=== PATIENT | female | born 1990 ===

== ENCOUNTER 2020-08-07 12:16 | Inpatient (IN) | payer OTHER ==
[~2020-08-07] VITALS: Ht 162.6 cm; Wt 2.7 kg
[2020-08-15] MEDS ORDERED: ZOLOFT50 MG PO (11:19)
[2020-08-15] MEDS ORDERED: PRENATAL TABLE1 EAC1 PO (11:20)
[2020-08-15] MEDS ORDERED: VISTARIL50 MG PO (11:20)
== END 2020-08-18 10:43 | disposition home or self-care (01) | DRG 788 ==
LOC: OB/GYN 08-15 11:14 → O/R 08-15 11:14 → LDR 08-15 11:14 → O/R 08-15 13:28 → OB/GYN 08-15 14:46
PROVIDERS: ADMIT Obstetrics & Gynecology Maternal & Fetal Medicine; ATTEND Obstetrics & Gynecology Maternal & Fetal Medicine
PROC: 4A1HXFZ Monitoring of Products of Conception, Cardiac Rhythm, External Approach (ICD-10-PCS; 2020-08-15)
PROC: 10D00Z1 Extraction of Products of Conception, Low, Open Approach (ICD-10-PCS; principal; 2020-08-15 12:00)
DX: O76 Abnormality in fetal heart rate and rhythm complicating labor and delivery (principal); Z3A.39 39 weeks gestation of pregnancy; Z37.0 Single live birth; Z20.822 Contact with and (suspected) exposure to COVID-19

== ENCOUNTER 2020-08-15 10:04 | Outpatient (CLI) | payer OTHER ==
[2020-08-15] MEDS ORDERED: ZOLOFT50 MG PO (11:19)
[2020-08-15] MEDS ORDERED: PRENATAL TABLE1 EAC1 PO (11:20)
[2020-08-15] MEDS ORDERED: VISTARIL50 MG PO (11:20)
== END 2020-08-15 11:57 | disposition still patient (30) ==
LOC: NST 10:04
PROVIDERS: ATTEND Obstetrics & Gynecology Maternal & Fetal Medicine
DX: O47.1 False labor at or after 37 completed weeks of gestation (principal)

== ENCOUNTER 2023-09-01 18:35 | Emergency (ER) | payer OTHER ==
[~2023-09-01] VITALS: Ht 172.7 cm; Wt 59.0 kg
[~2023-09-01 18:35] MED LIST: PRENATAL TABLE1 EAC1 PO; VISTARIL50 MG PO; ZOLOFT50 MG PO
[2023-09-01] MEDS ORDERED: ATIVAN0.5 M1 (19:16)
[2023-09-01] MEDS ORDERED: SERTRALINE HCL50 MG (19:17)
[2023-09-01] MEDS ORDERED: RISPERIDONE0.25 MG (19:17)
[2023-09-01] MEDS ORDERED: LAMICTAL25 M1 (19:17)
[2023-09-01] MEDS ORDERED: FAMOtidine 10 MG/ML (4ML VIAL) IV ONE (19:45)
[2023-09-01] MEDS ORDERED: 0.9 % SODIUM CHLORIDE 1,000 ML IV ONE (19:45)
[2023-09-01] MEDS ORDERED: ONDANSETRON HCL 2 MG/ML VIAL IV ONE (19:45)
[2023-09-01 21:03] LABS: HEMATOCRIT 36.4 % (36.0-45.00); HEMOGLOBIN 12.7 g/dL (12.0-15.00); MEAN CELL VOLUME 90.4 fL (80.00-100.00); MEAN CORPUSCULAR HEMOGLOBIN 31.6 pg (27.00-32.0); PLATELET COUNT 298 K/uL (150-450); RED BLOOD COUNT 4.03 M/uL (4.00-6.00)
[2023-09-01 21:40] LABS: ALBUMIN 4.2 gm/dL (3.4-5.0); BILIRUBIN TOTAL 0.44 mg/dL (0.3-1.2); CALCIUM 9.2 mg/dL (8.5-10.1); CREATININE SERUM 0.68 mg/dL (0.55-1.02); GFR 101.59; GLOBULINA 3.6 G/DL (2.4-3.5); POTASSIUM 3.55 mEq/L (3.5-5.1); TOTAL PROTEIN 7.8 gm/dL (6.4-8.2)
[2023-09-01 21:55] LABS: PH,URINE 5.5 (5.0-8.0); URINE APPEARANCE Cloudy; URINE BILIRRUBIN Negative (NEGATIVE); URINE BLOOD Negative; URINE COLOR Dark Yellow; URINE GLUCOSE Negative (NEGATIVE); URINE LEUKOCYTE Negative; URINE NITRATE Negative; URINE PROTEIN Trace (NEGATIVE)
[2023-09-01 21:59] LABS: URINE BACTERIA 2550.2 uL (0.0-1933); URINE EPITHELIAL CELLS 38.6 uL (0.0-38.8); URINE RBC 55.4 uL (0.0-20.8); URINE WBC 24.4 uL (0.0-23.2)
[2023-09-01 22:12] LABS: COCAINE NEGATIVE (NEGATIVE); METHADONE NEGATIVE (NEGATIVE); OPIATES NEGATIVE (NEGATIVE); THC ( Cannabinoids) POSITIVE (NEGATIVE)
[2023-09-01 22:15] LABS: URINE CRYSTALS MODERATE /HPF
== END 2023-09-01 22:42 | disposition home or self-care (01) ==
LOC: ER 18:35
PROVIDERS: General Practice
DX: F19.929 Other psychoactive substance use, unspecified with intoxication, unspecified (principal); F32.A Depression, unspecified; Z20.822 Contact with and (suspected) exposure to COVID-19